=== PATIENT | female | born 1980 | race Caucasian/White ===

== ENCOUNTER 2017-12-13 15:55 | Emergency (ER) | payer OTHER ==
[2017-12-13 16:06] VITALS: BP 110/62
[2017-12-13] MEDS ORDERED: Sodium Chloride 0.9% 10 ML Syringe FLUSH PRN (16:12)
[2017-12-13] MEDS ORDERED: Ondansetron 4 MG/2 ML SDV IVPUSH ONE (16:13)
[2017-12-13] MEDS ORDERED: Sodium Chloride 0.9% 1,000 ML IV SCH ×2 (16:15→16:45)
[2017-12-13] MEDS ORDERED: Ketorolac 30 MG/ML SDV IVPUSH ONE (16:19)
--- NOTE | 2017-12-13 16:26 | EDM.PDOC ---
ED HPI GENERAL MEDICAL PROBLEM - General Chief Complaint: Gastrointestinal Problem Stated Complaint: DIARRHEA, VOMITING, FAINTED Time Seen by Provider: 12/13/17 16:10 Source of Information: Reports: Patient History Limitations: Reports: No Limitations - History of Present Illness INITIAL COMMENTS - FREE TEXT/NARRATIVE: Winifred is an otherwise healthy 37 year old female who presents to the ED today with sudden onset of diarrhea, nausea and vomiting since 1230 today. 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 She has had no recent travel. She did have lunch with her family but no one else is sick to suggest food poisoning. Patient unable to keep down any oral liquids, denies any hematemsis/hematochezia. Patient does report she passed out twice. She denies any injury, once was while she was lying down. Patient is her 8 month old. Has IUD, so no concern for . 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 ED EXAM, GI/ABD - Physical Exam Exam: See Below Exam Limited By: No Limitations General Appearance: Alert, Moderate Distress Eyes: Bilateral: EOMI Ears: Normal External Exam Nose: Normal Inspection Head: Atraumatic Neck: Normal Inspection, Supple, Non-Tender Respiratory/Chest: No Respiratory Distress, Lungs Clear, Normal Breath Sounds Cardiovascular: Normal Peripheral Pulses, No Murmur, Tachycardia GI/Abdominal Exam: Soft, Tender (generalized, no focal), Abnormal Bowel Sounds ( hyperactive) Extremities: Normal Inspection Neurological: Alert, Oriented Psychiatric: Tearful Skin Exam: Pallor Lymphatic: No Adenopathy EKG INTERPRETATION EKG Date: 12/13/17 Time: 16:35 Rhythm: NSR [place]: Normal P-Wave: Present QRS: Normal ST-T: Normal QT: Normal Comparison: NA - No Prior EKG Course - Vital Signs Last Recorded V/S: Last Vital Signs Temp 36.6 C 12/13/17 16:05 Pulse 101 H 12/13/17 16:05 Resp 16 12/13/17 16:05 BP 110/62 12/13/17 16:05 Pulse Ox 97 12/13/17 16:05 Orthostatic Blood Pressure [ 100/70 Standing] Orthostatic Blood Pressure [ 112/67 Sitting] Orthostatic Blood Pressure [ 103/62 Supine] Winifred is an otherwise healthy 37 year old female who presents to the ED today with c/o sudden onset nausea/vomiting/diarrhea. Please refer to HPI and focused exam. Patient arrives here tachycardic, she is afebrile but feels chills. Patient is orthostatic on exam with standing heart rate up to 130, likely dehydration is the cause of her syncope exacerbated by her breast feeding , she denies any chest pain or cardiac hx, EKG obtained to rule out an arrythmia , sinus rhythm with no etocpy or ischemic findings. PIV established, patient was given 2 liters of NS here, Zofran for nausea and Tordadol for abdominal discomfort. Blood work today is reveals a leukocytosis with a left shift, likely from repetative vomiting and dehydration. given patient's lack of fever and her vast improvement in symptoms I do not feel this is bacterial. Electrolytes reassuring. Anion gap mildly elevated. Patient is feeling much better here, she is able to tolerate oral liquids. I am going to send patient home with Zofran as needed for nausea/vomiting, also recommending a good probiotic for the diarrhea, Culturelle, to take twice daily until her symptoms resolve. I do not think with her duration of symptoms that we need to culture her stool at this time but if symptoms persist that would be reasonable. Patient can follow up in clinic as needed. She was instructed to stay very well hydrated. Reasons to return to the ED were discussed in detail. patient is agreeable to plan of care and discharged in stable condition. - Orders/Labs/Meds Orders: Active Orders 24 hr Category Date Time Status EKG Documentation Completion [RC] ASDIRECTED Care 12/13/17 16:13 Active Peripheral IV Care [RC] . DIRECTED Care 12/13/17 16:12 Active Sodium Chloride 0.9% [Normal Saline] 1,000 ml Med 12/13/17 16:15 Active IV ASDIRECTED Sodium Chloride 0.9% [Normal Saline] 1,000 ml Med 12/13/17 16:45 Active IV ASDIRECTED Sodium Chloride 0.9% [Saline Flush] Med 12/13/17 16:12 Active 10 ml FLUSH ASDIRECTED PRN Peripheral IV Insertion Adult [OM.PC] Routine Oth 12/13/17 16:12 Ordered EKG 12 Lead [EK] Stat Ther 12/13/17 16:13 Ordered Medication Orders Sodium Chloride (Normal Saline) 1,000 mls @ 999 mls/hr IV ASDIRECTED SABAS Last Admin: 12/13/17 16:35 Dose: 999 mls/hr Sodium Chloride (Normal Saline) 1,000 mls @ 999 mls/hr IV ASDIRECTED SABAS Last Admin: 12/13/17 17:34 Dose: 999 mls/hr Sodium Chloride (Saline Flush) 10 ml FLUSH ASDIRECTED PRN PRN Reason: Keep Vein Open Last Admin: 12/13/17 16:35 Dose: 10 ml Labs: Laboratory Tests 12/13/17 12/13/17 Range/Units 16:25 16:25 WBC 19.2 H (4.5-11.0) K/uL RBC 5.28 (3.30-5.50) M/uL Hgb 15.4 H D (12.0-15.0) g/dL Hct 46.7 (36.0-48.0) % MCV 88 (80-98) fL MCH 29 (27-31) pg MCHC 33 (32-36) % Plt Count 421 H (150-400) K/uL Neut % (Auto) 87 H (36-66) % Lymph % (Auto) 7 L (24-44) % [place] % (Auto) 6 (2-6) % Eos % (Auto) 1 L (2-4) % Baso % (Auto) 0 (0-1) % Sodium 139 L (140-148) mmol/L Potassium 4.0 (3.6-5.2) mmol/L Chloride 103 (100-108) mmol/L Carbon Dioxide 25 (21-32) mmol/L Anion Gap 15.0 H (5.0-14.0) mmol/L BUN 16 D (7-18) mg/dL Creatinine 0.8 (0.6-1.0) mg/dL Est Cr Clr Drug Dosing 76.15 mL/min Estimated GFR (MDRD) > 60 (>60) Glucose 95 (74-106) mg/dL Calcium 9.3 (8.5-10.1) mg/dL Total Bilirubin 0.4 (0.2-1.0) mg/dL AST 17 (15-37) U/L ALT 21 (12-78) U/L Alkaline Phosphatase 89 (46-116) U/L Total Protein 8.7 H (6.4-8.2) g/dL Albumin 4.5 (3.4-5.0) g/dL Globulin 4.2 H (2.3-3.5) g/dL Albumin/Globulin Ratio 1.1 L (1.2-2.2) Meds: Medications Generic Name Dose Route Start Last Admin Trade Name Freq PRN Reason Stop Dose Admin Sodium Chloride 1,000 mls @ 999 mls/hr 12/13/17 16:15 12/13/17 16:35 Normal Saline IV 999 mls/hr ASDIRECTED SABAS Administration Sodium Chloride 1,000 mls @ 999 mls/hr 12/13/17 16:45 12/13/17 17:34 Normal Saline IV 999 mls/hr ASDIRECTED SABAS Administration Sodium Chloride 10 ml 12/13/17 16:12 12/13/17 16:35 Saline Flush FLUSH 10 ml ASDIRECTED PRN Administration Keep Vein Open Discontinued Medications Generic Name Dose Route Start Last Admin Trade Name Freq PRN Reason Stop Dose Admin Ketorolac Tromethamine 30 mg 12/13/17 16:19 12/13/17 16:40 Toradol IVPUSH 12/13/17 16:20 30 mg ONETIME ONE Administration Ondansetron HCl 4 mg 12/13/17 16:13 12/13/17 16:36 Zofran IVPUSH 12/13/17 16:14 4 mg ONETIME ONE Administration Departure - Departure Time of Disposition: 18:45 Disposition: Home, Self-Care 01 Condition: Good Clinical Impression: Viral gastroenteritis - Discharge Information *PRESCRIPTION DRUG MONITORING PROGRAM REVIEWED*: Not Applicable *COPY OF PRESCRIPTION DRUG MONITORING REPORT IN PATIENT AVERY: Not Applicable Instructions: Viral Gastroenteritis, Adult, Dehydration, Adult, [id number] Referrals: PCP,None [Primary Care Provider] - Forms: ED Department Discharge Additional Instructions: Keep well hydrated, water, Gatorade, etc. Take Zofran as needed for nausea/vomiting. I would recommend starting Culturelle, this is an over the counter probiotic, this should help shorten the duration of the diarrhea. I want you to take it twice daily until your diarrhea has resolved. Follow up with primary care as needed. Return here with any worsening symptoms. - My Orders Last 24 Hours: My Active Orders 12/13/17 16:12 Peripheral IV Care [RC] . DIRECTED Sodium Chloride 0.9% [Saline Flush] 10 ml FLUSH ASDIRECTED PRN Peripheral IV Insertion Adult [OM.PC] Routine 12/13/17 16:13 EKG Documentation Completion [RC] ASDIRECTED EKG 12 Lead [EK] Stat 12/13/17 16:15 Sodium Chloride 0.9% [Normal Saline] 1,000 ml IV ASDIRECTED 12/13/17 16:45 Sodium Chloride 0.9% [Normal Saline] 1,000 ml IV ASDIRECTED - Assessment/Plan Last 24 Hours: My Active Orders 12/13/17 16:12 Peripheral IV Care [RC] . DIRECTED Sodium Chloride 0.9% [Saline Flush] 10 ml FLUSH ASDIRECTED PRN Peripheral IV Insertion Adult [OM.PC] Routine 12/13/17 16:13 EKG Documentation Completion [RC] ASDIRECTED EKG 12 Lead [EK] Stat 12/13/17 16:15 Sodium Chloride 0.9% [Normal Saline] 1,000 ml IV ASDIRECTED 12/13/17 16:45 Sodium Chloride 0.9% [Normal Saline] 1,000 ml IV ASDIRECTED
== END 2017-12-13 18:38 | disposition home or self-care (01) ==
LOC: JP.ED 15:55
DX: A08.4 Viral intestinal infection, unspecified (principal)
CPT/HCPCS: 36415; 80053; 85025; 93005; 96361; 96374; 96375; 99284; J1885; J2405; J7030; J7050

== ENCOUNTER 2019-05-31 20:04 | Emergency (ER) | payer BC, OTHER ==
[2019-05-31 20:21] VITALS: BP 112/71; PULSE 81
--- NOTE | 2019-05-31 20:49 | EDM.PDOC ---
ED HPI GENERAL MEDICAL PROBLEM - General Chief Complaint: Abdominal Pain Stated Complaint: NAUSEA Time Seen by Provider: 05/31/19 20:41 Source of Information: Reports: Patient, RN Notes Reviewed History Limitations: Reports: No Limitations - History of Present Illness INITIAL COMMENTS - FREE TEXT/NARRATIVE: 38-year-old female presents emergency department a complaint of nausea vomiting and diarrhea, she has been ill for about 24 hours it does get progressively worse in the evening she denies any fevers no other sick contacts at home no blood no mucus abd pain Pain Score (Numeric/FACES): 2 - Related Data Allergies Allergy/AdvReac Type Severity Reaction Status Date / Time No Known Allergies Allergy Verified 05/31/19 20:26 Home Meds: Home Meds Ondansetron [Ondansetron ODT] 4 mg PO ASDIRECTED PRN 05/31/19 [History] Past Medical History HEENT History: Reports: Impaired Vision Genitourinary History: Reports: Renal Calculus 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: Psychiatric History: Reports: Anxiety - Infectious Disease History Infectious Disease History: Reports: Chicken Pox - Past Surgical History Female Surgical History: Reports: Section Social & Family History - Tobacco Use Smoking Status *Q: Never Smoker - Caffeine Use Caffeine Use: Reports: None - Recreational Drug Use Recreational Drug Use: No ED ROS GENERAL - Review of Systems Review Of Systems: See Below Constitutional: Reports: No Symptoms HEENT: Reports: No Symptoms Respiratory: Reports: No Symptoms Cardiovascular: Reports: No Symptoms GI/Abdominal: Reports: Abdominal Pain, Diarrhea, Nausea, Vomiting : Reports: No Symptoms Musculoskeletal: Reports: No Symptoms Skin: Reports: No Symptoms ED EXAM, GI/ABD - Physical Exam Exam: See Below Exam Limited By: No Limitations General Appearance: Alert, WD/WN, No Apparent Distress Respiratory/Chest: No Respiratory Distress, Lungs Clear, Normal Breath Sounds, No Accessory Muscle Use, Chest Non-Tender Cardiovascular: Regular Rate, Rhythm, No Murmur GI/Abdominal Exam: Soft, Non-Tender Extremities: Normal Inspection, No Pedal Edema Course - Vital Signs Last Recorded V/S: Last Vital Signs Temp 97.8 F 05/31/19 20:28 Pulse 81 05/31/19 20:28 Resp 16 05/31/19 20:28 BP 112/71 05/31/19 20:28 Pulse Ox 97 05/31/19 20:28 - Orders/Labs/Meds Orders: Active Orders 24 hr Category Date Time Status Peripheral IV Care [RC] . DIRECTED Care 05/31/19 20:46 Active Lactated Ringers [Ringers, Lactated] 1,000 ml Med 05/31/19 21:00 Active IV ASDIRECTED Sodium Chloride 0.9% [Saline Flush] Med 05/31/19 20:46 Active 10 ml FLUSH ASDIRECTED PRN Peripheral IV Insertion Adult [OM.PC] Urgent Oth 05/31/19 20:46 Ordered Medication Orders Lactated Ringer's (Ringers, Lactated) 1,000 mls @ 999 mls/hr IV ASDIRECTED SABAS Last Admin: 05/31/19 21:16 Dose: 999 mls/hr Sodium Chloride (Saline Flush) 10 ml FLUSH ASDIRECTED PRN PRN Reason: Keep Vein Open Last Admin: 05/31/19 20:59 Dose: 10 ml Labs: Laboratory Tests 05/31/19 05/31/19 05/31/19 Range/Units 20:53 20:53 20:53 WBC 8.6 (4.5-11.0) K/uL RBC 4.44 (3.30-5.50) M/uL Hgb 12.8 D (12.0-15.0) g/dL Hct 40.6 (36.0-48.0) % MCV 91 (80-98) fL MCH 29 (27-31) pg MCHC 32 (32-36) % Plt Count 287 (150-400) K/uL Neut % (Auto) 67 H (36-66) % Lymph % (Auto) 25 (24-44) % [place] % (Auto) 8 H (2-6) % Eos % (Auto) 0 L (2-4) % Baso % (Auto) 0 (0-1) % Sodium 142 (140-148) mmol/L Potassium 3.3 L (3.6-5.2) mmol/L Chloride 106 (100-108) mmol/L Carbon Dioxide 26 (21-32) mmol/L Anion Gap 13.3 (5.0-14.0) mmol/L BUN 10 (7-18) mg/dL Creatinine 0.7 (0.6-1.0) mg/dL Est Cr Clr Drug Dosing 86.18 mL/min Estimated GFR (MDRD) > 60 (>60) Glucose 110 H (74-106) mg/dL Lactic Acid 1.1 (0.4-2.0) mmol/L Calcium 8.5 (8.5-10.1) mg/dL Total Bilirubin 0.3 (0.2-1.0) mg/dL AST 11 L (15-37) U/L ALT 17 (12-78) U/L Alkaline Phosphatase 57 (46-116) U/L Total Protein 7.2 (6.4-8.2) g/dL Albumin 3.9 (3.4-5.0) g/dL Globulin 3.3 (2.3-3.5) g/dL Albumin/Globulin Ratio 1.2 (1.2-2.2) Urine Color (YELLOW) Urine Appearance (CLEAR) Urine pH (5.0-8.0) Ur Specific [place] (1.008-1.030) Urine Protein (NEGATIVE) mg/dL Urine Glucose (UA) (NEGATIVE) mg/dL Urine Ketones (NEGATIVE) mg/dL Urine Occult Blood (NEGATIVE) Urine Nitrite (NEGATIVE) Urine Bilirubin (NEGATIVE) Urine Urobilinogen (0.2-1.0) EU/dL Ur Leukocyte Esterase (NEGATIVE) Urine RBC (0-5) Urine WBC (0-5) Ur Epithelial Cells Amorphous Sediment Urine Bacteria Urine Mucus Urine HCG, Qual 05/31/19 05/31/19 Range/Units 21:19 21:22 WBC (4.5-11.0) K/uL RBC (3.30-5.50) M/uL Hgb (12.0-15.0) g/dL Hct (36.0-48.0) % MCV (80-98) fL MCH (27-31) pg MCHC (32-36) % Plt Count (150-400) K/uL Neut % (Auto) (36-66) % Lymph % (Auto) (24-44) % [place] % (Auto) (2-6) % Eos % (Auto) (2-4) % Baso % (Auto) (0-1) % Sodium (140-148) mmol/L Potassium (3.6-5.2) mmol/L Chloride (100-108) mmol/L Carbon Dioxide (21-32) mmol/L Anion Gap (5.0-14.0) mmol/L BUN (7-18) mg/dL Creatinine (0.6-1.0) mg/dL Est Cr Clr Drug Dosing mL/min Estimated GFR (MDRD) (>60) Glucose (74-106) mg/dL Lactic Acid (0.4-2.0) mmol/L Calcium (8.5-10.1) mg/dL Total Bilirubin (0.2-1.0) mg/dL AST (15-37) U/L ALT (12-78) U/L Alkaline Phosphatase (46-116) U/L Total Protein (6.4-8.2) g/dL Albumin (3.4-5.0) g/dL Globulin (2.3-3.5) g/dL Albumin/Globulin Ratio (1.2-2.2) Urine Color Yellow (YELLOW) Urine Appearance Clear (CLEAR) Urine pH 7.0 (5.0-8.0) Ur Specific [place] 1.020 (1.008-1.030) Urine Protein Negative (NEGATIVE) mg/dL Urine Glucose (UA) Negative (NEGATIVE) mg/dL Urine Ketones Negative (NEGATIVE) mg/dL Urine Occult Blood Negative (NEGATIVE) Urine Nitrite Negative (NEGATIVE) Urine Bilirubin Negative (NEGATIVE) Urine Urobilinogen 0.2 (0.2-1.0) EU/dL Ur Leukocyte Esterase Negative (NEGATIVE) Urine RBC 0-5 (0-5) Urine WBC 0-5 (0-5) Ur Epithelial Cells Few Amorphous Sediment Few Urine Bacteria Not seen Urine Mucus Not seen Urine HCG, Qual Negative Meds: Medications Generic Name Dose Route Start Last Admin Trade Name Miguelq PRN Reason Stop Dose Admin Lactated Ringer's 1,000 mls @ 999 mls/hr 05/31/19 21:00 05/31/19 21:16 Ringers, Lactated IV 999 mls/hr ASDIRECTED SABAS Administration Sodium Chloride 10 ml 05/31/19 20:46 05/31/19 20:59 Saline Flush FLUSH 10 ml ASDIRECTED PRN Administration Keep Vein Open Discontinued Medications Generic Name Dose Route Start Last Admin Trade Name Freq PRN Reason Stop Dose Admin Prochlorperazine Edisylate 5 mg 05/31/19 20:47 05/31/19 21:14 Compazine IVPUSH 05/31/19 20:48 5 mg ONETIME ONE Administration Departure - Departure Time of Disposition: 22:32 Disposition: Home, Self-Care 01 Condition: Fair Clinical Impression: Gastroenteritis - Discharge Information Instructions: Viral Gastroenteritis, Adult Referrals: Joseph Bellamy MD [Primary Care Provider] - Forms: ED Department Discharge Additional Instructions: Continue to push fluids, Tylenol and Motrin as needed, please followup with your primary care provider in 3-5 days if not better, please call return to the emergency department with worsening of symptoms. Sepsis Event Note - Evaluation Sepsis Screening Result: No Definite Risk - Focused Exam Vital Signs: Vital Signs Temp Pulse Resp BP Pulse Ox 05/31/19 20:28 97.8 F 81 16 112/71 97 05/31/19 20:20 97.8 F 81 16 112/71 97 Date Exam was Performed: 05/31/19 Time Exam was Performed: 22:31 - My Orders Last 24 Hours: My Active Orders 05/31/19 20:46 Peripheral IV Care [RC] . DIRECTED Sodium Chloride 0.9% [Saline Flush] 10 ml FLUSH ASDIRECTED PRN Peripheral IV Insertion Adult [OM.PC] Urgent 05/31/19 21:00 Lactated Ringers [Ringers, Lactated] 1,000 ml IV ASDIRECTED - Assessment/Plan Last 24 Hours: My Active Orders 05/31/19 20:46 Peripheral IV Care [RC] . DIRECTED Sodium Chloride 0.9% [Saline Flush] 10 ml FLUSH ASDIRECTED PRN Peripheral IV Insertion Adult [OM.PC] Urgent 05/31/19 21:00 Lactated Ringers [Ringers, Lactated] 1,000 ml IV ASDIRECTED Plan: Assessment Acuity = acute Site and laterality = gastroenteritis Etiology = probable viral Manifestations = nausea vomiting diarrhea Location of injury = Home Lab values = CBC, CMP, urinalysis unremarkable Plan She had some relief combination IV fluids and Compazine she does have Zofran at home a plan to discharged home follow-up primary care 3 to 5 days if not better This note was dictated using [employer] voice recognition software please call with any questions on syntax or grammar.
[2019-05-31] MEDS: Sodium Chloride 0.9% 10 ML Syringe FLUSH PRN (20:59)
[2019-05-31] MEDS: Prochlorperazine 10 MG/2 ML SDV IVPUSH ONE (21:14)
[2019-05-31] MEDS: Lactated Ringers 1,000 ML IV SCH (21:16)
--- NOTE | 2019-05-31 21:35 | CRLCR ---
Indication: Abdominal pain. Technique: AP view of the abdomen and pelvis. Comparison: None Findings: A right renal calculus is identified. A probable left renal calculus is identified. The bowel gas pattern is nonobstructive. Phleboliths are identified within the pelvis. A small amount of stool is identified within the colon. An IUD is present. Impression: Nonobstructive bowel gas pattern. Dictated by Jodie Martins MD @ May 31 2019 9:33PM Signed by Dr. Jodie Martins @ May 31 2019 9:33PM
[2019-05-31] MEDS ORDERED: Acetaminophen 325 MG Tab PO ONE (22:04)
== END 2019-05-31 22:50 | disposition home or self-care (01) ==
LOC: JP.ED 20:04
DX: K52.9 Noninfective gastroenteritis and colitis, unspecified (principal)
CPT/HCPCS: 36415; 74018; 80053; 81001; 81025; 83605; 85025; 96361; 96374; 99284; J0780; J7120

== ENCOUNTER 2019-06-08 23:01 | Emergency (ER) | payer BC ==
[2019-06-08] MEDS ORDERED: LORazepam 2 MG/ML SDV IM ONE (23:42)
--- NOTE | 2019-06-08 23:45 | EDM.PDOCBH ---
ED HPI GENERAL MEDICAL PROBLEM - General Chief Complaint: Behavioral/Psych Stated Complaint: PANIC ATTACK Time Seen by Provider: 06/08/19 23:38 Source of Information: Reports: Patient, Family, RN Notes Reviewed History Limitations: Reports: No Limitations - History of Present Illness INITIAL COMMENTS - FREE TEXT/NARRATIVE: 38-year-old female presents emergency department today with complaint of anxiety. She believes she has had a panic attack she is never experienced 1 4 her issue is the sensation that she is going to be sick. She was hyperventilating she was tachycardic she felt short of breath she thought she was going to . 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: Psychiatric History: Reports: Anxiety - Infectious Disease History Infectious Disease History: Reports: Chicken Pox - Past Surgical History Female Surgical History: Reports: Section Social & Family History - Family History Family Medical History: Noncontributory - Tobacco Use Smoking Status *Q: Never Smoker - Caffeine Use Caffeine Use: Reports: None - Recreational Drug Use Recreational Drug Use: No ED ROS GENERAL - Review of Systems Review Of Systems: See Below Constitutional: Reports: No Symptoms HEENT: Reports: No Symptoms Respiratory: Reports: Shortness of Breath Cardiovascular: Reports: Chest Pain, Palpitations GI/Abdominal: Reports: Nausea : Reports: No Symptoms Musculoskeletal: Reports: No Symptoms Skin: Reports: Diaphoresis Neurological: Reports: Numbness, Tingling Psychiatric: Reports: Anxiety ED EXAM, BEHAVIORAL HEALTH - Physical Exam Exam: See Below Exam Limited By: No Limitations General Appearance: Alert, WD/WN, No Apparent Distress Respiratory/Chest: No Respiratory Distress, Lungs Clear, Normal Breath Sounds, No Accessory Muscle Use, Chest Non-Tender Cardiovascular: Regular Rate, Rhythm, No Murmur Psychiatric: Alert, Tearful, Agitated, Other COURSE, BEHAVIORAL HEALTH COMP - Course Vital Signs: Last Vital Signs Temp 97.9 F 06/08/19 23:27 Pulse 94 06/08/19 23:27 Resp 18 06/08/19 23:27 BP 110/63 06/08/19 23:27 Pulse Ox 100 06/08/19 23:27 Orders, Labs, Meds: Medications Discontinued Medications Generic Name Dose Route Start Last Admin Trade Name [place] PRN Reason Stop Dose Admin Lorazepam 1 mg 06/08/19 23:42 06/09/19 00:05 Ativan IM 06/08/19 23:43 1 mg ONETIME ONE Administration Departure - Departure Time of Disposition: 01:00 Disposition: Home, Self-Care 01 Condition: Fair Clinical Impression: Panic attack - Discharge Information Referrals: Joseph Bellamy MD [Primary Care Provider] - Forms: ED Department Discharge Additional Instructions: Use Ativan as needed for anxiety symptoms, please followup with your primary care provider in 3-5 days if not better, please call return to the emergency department with worsening of symptoms. Sepsis Event Note - Evaluation Sepsis Screening Result: No Definite Risk - Focused Exam Vital Signs: Vital Signs Temp Pulse Resp BP Pulse Ox 06/08/19 23:27 97.9 F 94 18 110/63 100 Date Exam was Performed: 06/09/19 Time Exam was Performed: 00:59 - Assessment/Plan Plan: Assessment Acuity = acute Site and laterality = panic attack Etiology = probable underlying generalized anxiety Manifestations = none Location of injury = Home Lab values = none Plan Good improvement 1 mg Ativan prescription written for Ativan 1 mg p.o. 3 times daily PRN total #10 plan is to follow-up with primary care 3 to 5 days if not better This note was dictated using [employer] recognition software please call with any questions on syntax or grammar.
[2019-06-09 01:43] VITALS: BP 106/62; PULSE 79
== END 2019-06-09 01:19 | disposition home or self-care (01) ==
LOC: JP.ED 23:01
DX: F41.0 Panic disorder [episodic paroxysmal anxiety] (principal); Z79.899 Other long term (current) drug therapy
CPT/HCPCS: 96372; 99283; J2060